=== PATIENT | female | born 1970 | race Caucasian/White ===

== ENCOUNTER 2018-02-09 17:48 | Emergency (ER) | payer MEDICAID ==
[~2018-02-09] VITALS: Ht 167.6 cm; Wt 80.0 kg
[~2018-02-09 17:48] MED LIST: LEVO500T2 PO; P20 PO; PRED5TAB48 PO; [UNRECOGNIZED DRUG - OTHER] PO
[2018-02-09 18:28] LABS: BASOPHILS % 0.8 % (0.0-2.0); EOSINOPHILS % 1.3 % (0.0-5.0); HEMATOCRIT. 34.4 % (36.0-48.0); HEMOGLOBIN. 11.9 g/dL (12.0-16.0); LYMPHOCYTES % 27.8 % (20.0-50.0); MEAN CORPUSCULAR VOLUME 86.7 fL (81.0-99.0); MEAN PLATELET VOLUME 9.1 fl (7.4-10.4); MONOCYTES % 8.3 % (2.0-8.0); NEUTROPHILS % 61.8 % (40.0-76.0); PLATELET 220 x1000/uL (130-400); RED BLOOD CELL COUNT 3.97 mill/uL (4.2-5.4); RED CELL DISTRIBUTION WIDTH 13.3 % (11.6-14.6)
[2018-02-09 18:31] LABS: CHLORIDE 107 mEq/L (98-107)
[2018-02-09 18:32] LABS: PROTHROMBIN TIME 10.4 sec (9.4-11.6)
[2018-02-09 18:42] LABS: CLARITY URINE CLEAR (CLEAR); COLOR URINE YELLOW (YELLOW); KETONES URINE NEGATIVE (NEGATIVE); LEUKOCYTE ESTERASE URINE 1+ (NEGATIVE); NITRITE URINE NEGATIVE (NEGATIVE); OCCULT BLOOD URINE TRACE (NEGATIVE); PH URINE 8.5 (4.5-8.0); PROTEIN URINE NEGATIVE (NEGATIVE); SPECIFIC GRAVITY URINE 1.016 (1.005-1.030); UROBILINOGEN URINE 0.2 E.U./dL (0.2-1.0)
[2018-02-09] MEDS ORDERED: SODIUM CHLORIDE 0.9% 1,000 ML IV ONE (19:09)
[2018-02-09] MEDS ORDERED: KETOROLAC 30MG/ML VIAL IV STA (19:09)
[2018-02-09] MEDS ORDERED: ONDANSETRON HCL 4MG/2ML VIAL IV STA (19:09)
[2018-02-09 23:50] VITALS: BP 118/76
== END 2018-02-10 00:04 | disposition home or self-care (01) ==
LOC: ER 18:11
DX: N39.0 Urinary tract infection, site not specified (principal); J45.909 Unspecified asthma, uncomplicated
CPT/HCPCS: 36415; 74176; 80053; 81003; 81025; 83690; 85025; 85610; 96361; 96374; 96375; 99285; J1885; J2405; J7030; Z7610

== ENCOUNTER 2021-02-22 18:48 | Emergency (ER) | payer MEDICAID ==
[~2021-02-22] VITALS: Ht 165.1 cm; Wt 75.0 kg
[~2021-02-22 18:48] MED LIST changes: +PROM6.2514 PO; -[UNRECOGNIZED DRUG - OTHER] PO
[2021-02-22] MEDS ORDERED: KETOROLAC 30MG/ML VIAL IV ONE (19:45)
[2021-02-22] MEDS ORDERED: ACETAMINOPHEN 325MG TABLET PO ONE (19:45)
[2021-02-22] MEDS ORDERED: ACET-2708 MT (19:52)
[2021-02-22] MEDS ORDERED: KETOROLAC 30MG/ML VIAL IM ONE (20:00)
[2021-02-22 21:15] VITALS: BP 128/84
== END 2021-02-22 21:15 | disposition home or self-care (01) ==
LOC: ER 18:48
DX: M25.531 Pain in right wrist (principal); J45.909 Unspecified asthma, uncomplicated
CPT/HCPCS: 29125; 73110; 96372; 99283; J1885

== ENCOUNTER 2021-07-22 22:05 | Inpatient (IN) | payer MEDICAID, OTHER ==
[~2021-07-22] VITALS: Ht 167.6 cm; Wt 83.0 kg
[~2021-07-22 22:05] MED LIST changes: +ACET-2708 MT
[2021-07-23 01:24] LABS: BASOPHILS % 0.5 % (0.0-2.0); EOSINOPHILS % 1.9 % (0.0-5.0); HEMATOCRIT. 36.2 % (36.0-48.0); HEMOGLOBIN. 12.1 g/dL (12.0-16.0); LYMPHOCYTES % 35.5 % (20.0-50.0); MEAN CORPUSCULAR HEMOGLOBIN 29.3 pg (28.0-32.0); MEAN CORPUSCULAR VOLUME 87.4 fL (81.0-99.0); MEAN PLATELET VOLUME 8.5 fl (7.4-10.4); MONOCYTES % 9.9 % (2.0-8.0); NEUTROPHILS % 52.2 % (40.0-76.0); PLATELET 261 x1000/uL (130-400); RED BLOOD CELL COUNT 4.14 mill/uL (4.2-5.4); RED CELL DISTRIBUTION WIDTH 13.2 % (11.6-14.6)
[2021-07-23 01:29] LABS: CHLORIDE 106 mEq/L (98-107)
[2021-07-23] MEDS ORDERED: ASPIRIN 81MG TABLET PO ONE (02:30)
[2021-07-23 07:13] LABS: METHADONE URINE SCREEN NEGATIVE (NEGATIVE); OPIATES URINE SCREEN NEGATIVE (NEGATIVE)
[2021-07-23 07:14] LABS: *AMPHETAMINES SCREEN URINE NEGATIVE (NEGATIVE); *BARBITURATES SCREEN URINE NEGATIVE (NEGATIVE); *BENZODIAZEPINES SCREEN URINE NEGATIVE (NEGATIVE); CANNABINOID URINE SCREEN NEGATIVE (NEGATIVE); PHENCYCLIDINE URINE SCREEN NEGATIVE (NEGATIVE)
[2021-07-23 07:15] LABS: *COCAINE SCREEN URINE NEGATIVE (NEGATIVE)
[2021-07-23 10:49] VITALS: BP 119/68
[2021-07-23] MEDS ORDERED: LEVO50TA8 PO (11:14)
[2021-07-23] MEDS ORDERED: DOCUSATE SODIUM 100MG CAPSULE PO PRN (11:45)
[2021-07-23] MEDS ORDERED: HYDROCODONE/ACETAMINOPHEN 5/325MG TABLET PO PRN (11:45)
[2021-07-23] MEDS ORDERED: ACETAMINOPHEN 325MG TABLET PO PRN (11:45)
[2021-07-23] MEDS ORDERED: MAGNESIUM/ALUMINUM HYDROXIDE/SIMETHICONE 30ML UDC PO PRN (11:45)
[2021-07-23] MEDS ORDERED: CLONIDINE 0.1MG TABLET PO PRN (11:45)
[2021-07-23] MEDS ORDERED: IPRATROPIUM/ALBUTEROL 0.5-3(2.5)MG/3ML NEB HHN PRN (11:45)
[2021-07-23 12:00] VITALS: BP 115/70
[2021-07-23] MEDS ORDERED: NALOXONE HCL 0.4MG/ML VIAL IV PRN (12:15)
[2021-07-23] MEDS: ENOXAPARIN 40MG/0.4ML SYR SUBCUT SCH (13:58)
[2021-07-23] MEDS: OMEPRAZOLE 20MG CAPSULE EXTENDED RELEASE PO SCH (13:59)
[2021-07-23 16:00] VITALS: BP 102/58
[2021-07-23] MEDS: MONTELUKAST SODIUM 10MG TABLET PO SCH (18:18)
[2021-07-23] MEDS: PREDNISONE 10MG TABLET PO SCH (18:18)
[2021-07-23 20:00] VITALS: BP 124/72
[2021-07-24] VITALS (7 sets, daily range): BP systolic 104–124; BP diastolic 59–72
[2021-07-24] MEDS: OMEPRAZOLE 20MG CAPSULE EXTENDED RELEASE PO SCH (06:11)
[2021-07-24 07:46] LABS: CHLORIDE 108 mEq/L (98-107)
[2021-07-24 07:47] LABS: BASOPHILS % 0.3 % (0.0-2.0); EOSINOPHILS % 0.3 % (0.0-5.0); HEMATOCRIT. 39.6 % (36.0-48.0); HEMOGLOBIN. 13.2 g/dL (12.0-16.0); LYMPHOCYTES % 26.7 % (20.0-50.0); MEAN CORPUSCULAR HEMOGLOBIN 29.6 pg (28.0-32.0); MEAN CORPUSCULAR VOLUME 88.5 fL (81.0-99.0); MEAN PLATELET VOLUME 8.6 fl (7.4-10.4); MONOCYTES % 4.1 % (2.0-8.0); NEUTROPHILS % 68.6 % (40.0-76.0); PLATELET 275 x1000/uL (130-400); RED BLOOD CELL COUNT 4.48 mill/uL (4.2-5.4); RED CELL DISTRIBUTION WIDTH 13.3 % (11.6-14.6)
[2021-07-24 08:06] LABS: PHOSPHORUS 4.3 mg/dL (2.5-4.9)
[2021-07-24 08:07] LABS: LDL CHOLESTEROL 162 mg/dL (5-100)
[2021-07-24 08:10] LABS: T4 FREE 0.92 ng/dL (0.76-1.46)
[2021-07-24 08:16] LABS: HDL CHOLESTEROL 59 mg/dL (40-59)
[2021-07-24] MEDS: PREDNISONE 10MG TABLET PO SCH (08:59)
[2021-07-24] MEDS: ENOXAPARIN 40MG/0.4ML SYR SUBCUT SCH (08:59)
[2021-07-24] MEDS: MONTELUKAST SODIUM 10MG TABLET PO SCH (17:21)
== END 2021-07-24 20:25 | disposition home or self-care (01) | DRG 203 ==
LOC: ER 22:05 → 8WST 07-23 03:58 → ENRESERV 07-23 10:05
PROVIDERS: ADMIT Internal Medicine; ATTEND Internal Medicine
DX: M94.0 Chondrocostal junction syndrome [Tietze] (principal); J45.901 Unspecified asthma with (acute) exacerbation; E05.90 Thyrotoxicosis, unspecified without thyrotoxic crisis or storm; Z20.822 Contact with and (suspected) exposure to COVID-19; R03.0 Elevated blood-pressure reading, without diagnosis of hypertension
CPT/HCPCS: 36415; 71045; 80048; 80053; 80061; 80305; 83735; 83880; 84100; 84439; 84443; 84484; 85025; 85379; 87426; 93005; 93306; 99285; C1893; J1650; J7512

== ENCOUNTER 2022-10-29 19:10 | Emergency (ER) | payer MEDICAID, OTHER ==
[~2022-10-29] VITALS: Ht 167.6 cm; Wt 87.0 kg
[~2022-10-29 19:10] MED LIST changes: +LEVO50TA8 PO; +LIDO1ADH5 TP; +METH-773 MT; +NAPR-681 MT
[2022-10-29] MEDS ORDERED: IBUPROFEN 600MG TABLET PO ONE (19:30)
[2022-10-29] MEDS ORDERED: IBUP-2029 MT (19:31)
[2022-10-29 19:55] VITALS: BP 114/74
== END 2022-10-29 20:02 | disposition home or self-care (01) ==
LOC: ER 19:10
DX: M72.2 Plantar fascial fibromatosis (principal); J45.909 Unspecified asthma, uncomplicated; E03.9 Hypothyroidism, unspecified
CPT/HCPCS: 99282

== ENCOUNTER 2023-02-09 20:54 | Emergency (ER) | payer MEDICAID ==
[~2023-02-09] VITALS: Ht 167.6 cm; Wt 88.0 kg
[~2023-02-09 20:54] MED LIST changes: +IBUP-2029 MT
[2023-02-09 21:00] VITALS: BP 122/78
[2023-02-09 21:32] LABS: BASOPHILS % 0.7 % (0.0-2.0); EOSINOPHILS % 2.5 % (0.0-5.0); HEMATOCRIT. 37.9 % (36.0-48.0); HEMOGLOBIN. 12.7 g/dL (12.0-16.0); LYMPHOCYTES % 43.4 % (20.0-50.0); MEAN CORPUSCULAR HEMOGLOBIN 29.7 pg (28.0-32.0); MEAN PLATELET VOLUME 8.5 fl (7.4-10.4); MONOCYTES % 7.9 % (2.0-8.0); NEUTROPHILS % 45.5 % (40.0-76.0); PLATELET 283 x1000/uL (130-400); RED BLOOD CELL COUNT 4.26 mill/uL (4.2-5.4); RED CELL DISTRIBUTION WIDTH 13.6 % (11.6-14.6)
[2023-02-09 21:43] LABS: CHLORIDE 107 mEq/L (98-107)
== END 2023-02-10 01:03 | disposition home or self-care (01) ==
LOC: ER 20:54
DX: R07.89 Other chest pain (principal); J45.909 Unspecified asthma, uncomplicated; Z79.899 Other long term (current) drug therapy
CPT/HCPCS: 36415; 71045; 80053; 84484; 85025; 93005; 99285

== ENCOUNTER 2025-02-14 20:08 | Emergency (ER) | payer MEDICAID ==
[~2025-02-14] VITALS: Ht 167.6 cm; Wt 90.0 kg
[~2025-02-14 20:08] MED LIST changes: -PROM6.2514 PO; +PROM6.2533 PO
[2025-02-14 20:20] VITALS: O2SAT 98
[2025-02-14 20:39] LABS: CLARITY URINE CLEAR (CLEAR); COLOR URINE YELLOW (YELLOW); GLUCOSE URINE NEGATIVE (NEGATIVE); KETONES URINE NEGATIVE (NEGATIVE); LEUKOCYTE ESTERASE URINE TRACE (NEGATIVE); NITRITE URINE NEGATIVE (NEGATIVE); OCCULT BLOOD URINE TRACE (NEGATIVE); PH URINE 6.5 (4.5-8.0); PROTEIN URINE NEGATIVE (NEGATIVE)
[2025-02-14 20:59] LABS: BACTERIA URINE 1+; RBC URINE 0-2 /hpf (0-2); SQUAMOUS EPITHELIAL CELL URINE 1+ /lpf (RARE/1+)
[2025-02-14 21:00] LABS: CHLORIDE 105 mEq/L (98-107); SODIUM 141 mEq/L (136-145)
[2025-02-14 21:00] LABS: WBC URINE 0-2 /hpf (0-2)
[2025-02-14 21:01] LABS: CARBON DIOXIDE 29 mEq/L (21-32)
[2025-02-14 21:02] LABS: CALCIUM 9.2 mg/dL (8.7-10.4)
[2025-02-14 21:06] LABS: BASOPHILS % 0.7 % (0.0-2.0); CREATININE 0.9 mg/dL (0.6-1.0); EOSINOPHILS % 1.9 % (0.0-5.0); GLUCOSE 107 mg/dL (70-105); HEMATOCRIT. 35.5 % (36.0-48.0); HEMOGLOBIN. 11.9 g/dL (12.0-16.0); LYMPHOCYTES % 37.6 % (20.0-50.0); MEAN CORPUSCULAR HEMOGLOBIN 28.7 pg (28.0-32.0); MEAN CORPUSCULAR HGB CONC 33.5 g/dL (31.0-37.0); MEAN CORPUSCULAR VOLUME 85.7 fL (81.0-99.0); MEAN PLATELET VOLUME 8.9 fl (7.4-10.4); MONOCYTES % 6.4 % (2.0-8.0); NEUTROPHILS % 53.4 % (40.0-76.0); PLATELET 249 x1000/uL (130-400); RED BLOOD CELL COUNT 4.14 mill/uL (4.2-5.4); RED CELL DISTRIBUTION WIDTH 13.7 % (11.6-14.6); UREA NITROGEN BLOOD 11 mg/dL (9-23)
[2025-02-14 21:12] LABS: TROPONIN I HIGH SENSITIVITY < 4 ng/L (3.0-34)
[2025-02-14] MEDS: FAMOTIDINE 20MG TABLET PO ONE (21:44)
[2025-02-14] MEDS: ACETAMINOPHEN 500MG TABLET PO ONE (21:44)
[2025-02-14] MEDS: MAGNESIUM/ALUMINUM HYDROXIDE/SIMETHICONE 30ML UDC PO ONE (21:45)
[2025-02-15 00:17] LABS: TROPONIN I HIGH SENSITIVITY < 4 ng/L (3.0-34)
[2025-02-15] MEDS ORDERED: MAG355OR21 MT (00:28)
[2025-02-15 00:30] VITALS: BP 148/98; PULSE 71; RESP 18; TEMP 36.6; O2SAT 99
== END 2025-02-15 00:32 | disposition home or self-care (01) ==
LOC: ER 20:08
DX: R07.89 Other chest pain (principal); J45.909 Unspecified asthma, uncomplicated; E03.9 Hypothyroidism, unspecified; Z79.899 Other long term (current) drug therapy
CPT/HCPCS: 36415; 71045; 80048; 81003; 81025; 84484; 85025; 93005; 99285